=== PATIENT | female | born 1995 | race Caucasian/White ===

== ENCOUNTER 2020-04-07 09:31 | Emergency (ER) | payer OTHER, SELFPAY ==
--- OUTSIDE RECORDS SUMMARY | 2020-04-07 09:34 | XMS REPORT | Continuity of Care Document ---
:1995 Author Organization [facility] t Address [address] [place] [address] Dr. Mcgowan [address] [place] [id number] Care Team Providers Name Role Phone Unavailable Unavailable Unavailable Problems This patient has no known problems. Allergies, Adverse Reactions, Alerts This patient has no known allergies or adverse reactions. Medications This patient has no known medications. Procedures This patient has no known procedures. Results This patient has no known results.
[2020-04-07] MEDS ORDERED: NA CHLORIDE 0.9% 1,000 ML ONE (10:18)
[2020-04-07] MEDS ORDERED: PROMETHAZINE INJ 25 MG/ML AMP ONE (10:18)
[2020-04-07 10:32] LABS: Absolute Lymphocytes (CBC) 1.6 K/uL (0.7-4.9); Basophils % 0.9 % (0-1.3); Hematocrit 40.9 % (36.0-45.0); RBC Red Blood Cell Count 4.28 M/uL (3.86-4.86)
[2020-04-07 10:36] LABS: Urine Blood 3+ (NEG); Urine Glucose NEGATIVE (NEG); Urine Protein TRACE (NEG)
[2020-04-07 10:50] LABS: BUN Blood Urea Nitrogen 11 mg/dL (7-18); Bicarbonate 26 mmol/L (21-32); Glucose Level 97 mg/dL (74-106); Sodium Level 142 mmol/L (136-145)
[2020-04-07 10:54] LABS: Urine Bacteria <20 /HPF (<20)
[2020-04-07 10:55] LABS: Urine Amorphous Sediment 1+ /HPF (NONE SEEN)
[2020-04-07 11:01] LABS: HCG, Quantitative < 1 mIU/mL (1-3)
--- NOTE | 2020-04-07 11:13 | EDPHYS ---
Physician Documentation [facility] Name: Jaylin Caceres Age: 25 yrs Sex: Female : 1995 Arrival Date: 04/07/2020 Time: 09:35 Bed 15 Private MD: ED Physician Wade Armendariz HPI: 04/07 09:51 This 25 yrs old Female presents to ER via Ambulatory with complaints of pm1 Vaginal Bleeding, + Preg <12wks. 09:51 The patient presents to the emergency department with vaginal bleeding, has used two pm1 panty liners since onset this AM. Previous pregnancies: in previous pregnancies patient has had. Associated signs and symptoms: Pertinent positives: nausea, Pertinent negatives: chest pain, diarrhea, dysuria, fever, shortness of breath, vomiting. feels like prior miscarriage. Patient late on cycle about 1 week so she took a home test last night and it came back positive. This AM onset of vaginal bleeding. 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 - Social history:: Smoking status: Patient reports the use of cigarette tobacco products, smokes one-half pack cigarettes per day. ROS: 09:51 Constitutional: Negative for fever, chills, and weight loss, Cardiovascular: Negative pm1 for chest pain, palpitations, and edema, Respiratory: Negative for shortness of breath, cough, wheezing, and pleuritic chest pain. 09:51 Back: Negative for injury and pain. 09:51 MS/Extremity: Negative for injury and deformity, Skin: Negative for injury, rash, and discoloration, Neuro: Negative for headache, weakness, numbness, tingling, and seizure. 09:51 Abdomen/GI: Positive for nausea, abdominal cramps, Negative for vomiting, diarrhea. 09:51 : Positive for vaginal bleeding, Negative for urinary symptoms. Exam: 09:51 Constitutional: This is a well developed, well nourished patient who is awake, alert, pm1 and in no acute distress. Head/Face: Normocephalic, atraumatic. 09:51 Back: No spinal tenderness. No costovertebral tenderness. Full range of motion. Skin: Warm, dry with normal turgor. Normal color with no rashes, no lesions, and no evidence of cellulitis. MS/ Extremity: Pulses equal, no cyanosis. Neurovascular intact. Full, normal range of motion. 09:51 Cardiovascular: Exam negative for acute changes, Rate: normal, Rhythm: regular, Pulses: no pulse deficits are appreciated. 09:51 Respiratory: Exam negative for acute changes, respiratory distress, shortness of breath. 09:51 Abdomen/GI: Exam negative for acute changes, Inspection: abdomen appears normal, Bowel sounds: normal, Palpation: abdomen is soft and non-tender, in all quadrants. 09:51 Neuro: Exam negative for acute changes, Orientation: is normal, Mentation: is normal, Motor: is normal, moves all fours. Vital Signs: 09:51 BP 118 / 79; Pulse 94; Resp 18; Temp 98.2; Pulse Ox 99% on R/A; Weight 81.65 kg; Height ph 5 ft. 8 in. (172.72 cm); 10:47 BP 110 / 65; Pulse 64; Resp 18; Pulse Ox 100% on R/A; ph 11:40 BP 111 / 75; Pulse 148; Resp 18; Pulse Ox 100% on R/A; mh5 09:51 Body Mass Index 27.37 (81.65 kg, 172.72 cm) ph MDM: 09:43 Patient medically screened. pm1 11:12 Data reviewed: vital signs. Data interpreted: Pulse oximetry: on room air is 100 %. pm1 Interpretation: normal. Counseling: I had a detailed discussion with the patient and/or guardian regarding: the historical points, exam findings, and any diagnostic results supporting the discharge/admit diagnosis, lab results, the need for outpatient follow up, an OB/Gyne specialist, to return to the emergency department if symptoms worsen or persist or if there are any questions or concerns that arise at home. 04/07 09:51 Order name: Quantitative Hcg; Complete Time: 11:03 pm1 04/07 09:51 Order name: Abo/rh Typing; Complete Time: 11:12 pm1 04/07 09:51 Order name: Basic Metabolic Panel; Complete Time: 11:03 pm1 04/07 09:51 Order name: CBC with Diff; Complete Time: 10:53 pm1 04/07 09:51 Order name: Urine Microscopic Only; Complete Time: 11:03 pm1 04/07 10:32 Order name: Urine Dipstick--Ancillary (enter results); Complete Time: 10:53 em1 04/07 09:51 Order name: Urine Test (obtain specimen); Complete Time: 10:29 pm1 04/07 09:51 Order name: IV Saline Lock; Complete Time: 10:29 pm1 04/07 09:51 Order name: Labs collected and sent; Complete Time: 10:29 pm1 04/07 09:51 Order name: NPO; Complete Time: 10:29 pm1 04/07 10:32 Order name: Urine --Ancillary (enter results); Complete Time: 10:53 em1 04/07 09:51 Order name: Urine Dipstick-Ancillary (obtain specimen); Complete Time: 10:29 pm1 Administered Medications: 10:15 Drug: NS 0.9% 1000 ml Route: IV; Rate: 1000 ml; Site: right antecubital; ph 11:58 Follow up: Response: No adverse reaction; IV Status: Completed infusion ph 10:15 Drug: Phenergan 12.5 mg Route: IVP; Site: right antecubital; ph 11:58 Follow up: Response: No adverse reaction; Nausea is decreased ph Point of Care Testing: Urine : 10:30 hCG Reading: Negative; ph Disposition: 04/08 06:58 Co-signature as Attending Physician, Wade Armendariz MD I agree with the assessment and cora plan of care. Disposition: 04/07/20 11:13 Discharged to Home. Impression: Abnormal uterine and vaginal bleeding, unspecified. - Condition is Stable. - Discharge Instructions: Abnormal Uterine Bleeding. - Work release form, Family Work Release, Medication Reconciliation Form, Thank You Letter, Antibiotic Education, Prescription Opioid Use form. - Follow up: Emergency Department; When: As needed; Reason: Worsening of condition. Follow up: Private Physician; When: 2 - 3 days; Reason: Recheck today's complaints, Continuance of care, Re-evaluation by your physician. - Problem is new. - Symptoms have improved. Signatures: Dispatcher [employer] EDMS Wade Armendariz MD MD cha Hall, Patricia, RN RN ph Mk Rivera, COMPRESSED AIR PILE DRIVER OPERATOR COMPRESSED AIR PILE DRIVER OPERATOR pm1 Corrections: (The following items were deleted from the chart) 04/07 11:36 09:52 Transvaginal Ob+US.RAD.BRZ ordered. [facility] 11:59 11:13 04/07/2020 11:13 Discharged to Home. Impression: Abnormal uterine and vaginal ph bleeding, unspecified. Condition is Stable. Forms are Medication Reconciliation Form, Thank You Letter, Antibiotic Education, Prescription Opioid Use. Follow up: Emergency Department; When: As needed; Reason: Worsening of condition. Follow up: Private Physician; When: 2 - 3 days; Reason: Recheck today's complaints, Continuance of care, Re-evaluation by your physician. Problem is new. Symptoms have improved. pm1
--- NOTE | 2020-04-07 11:13 | ER ---
Nurse's Notes [facility] Name: Jaylin Caceres Age: 25 yrs Sex: Female : 1995 Arrival Date: 04/07/2020 Time: 09:35 Bed 15 Private MD: Diagnosis: Abnormal uterine and vaginal bleeding, unspecified Presentation: 04/07 09:51 Chief complaint: Patient states: Menstrual period approx 1 week late, took UPT last ph night and was positive, this morning upon waking had heavy vaginal bleeding and cramping, also reports nausea and difficulty urinating. Coronavirus screen: Client denies travel out of the [place] in the last 14 days. At this time, the client does not indicate any symptoms associated with coronavirus-19. Ebola Screen: No symptoms or risks identified at this time. Initial Sepsis Screen: Does the patient meet any 2 criteria? No. Patient's initial sepsis screen is negative. Does the patient have a suspected source of infection? No. Patient's initial sepsis screen is negative. Risk Assessment: Do you want to hurt yourself or someone else? Patient reports no desire to harm self or others. Onset of symptoms was April 07, 2020. 09:51 Method Of Arrival: Ambulatory ph 09:51 Acuity: LAWRENCE 3 ph Triage Assessment: 09:56 General: Appears in no apparent distress. comfortable, Behavior is cooperative, ph appropriate for age, anxious, Denies fever, feeling ill. Pain: Complains of pain in suprapubic area, right lower quadrant and left lower quadrant. Neuro: Level of Consciousness is awake, alert, obeys commands, Oriented to person, place, time, situation. Cardiovascular: Capillary refill < 3 seconds in bilateral fingers Patient's skin is warm and dry. Respiratory: Airway is patent Respiratory effort is even, unlabored, Respiratory pattern is regular, symmetrical. GI: Reports nausea, Patient currently denies vomiting. : Reports cramping, in bilateral lower quadrant(s) vaginal bleeding that is bright red, heavy flow. Derm: Skin is intact, is healthy with good turgor, Skin is pink, warm \T\ dry. Musculoskeletal: Circulation, motion, and sensation intact. Range of motion: intact in all extremities. 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 - Social history:: Smoking status: Patient reports the use of cigarette tobacco products, smokes one-half pack cigarettes per day. Screenin:55 Abuse screen: Denies threats or abuse. Denies injuries from another. Nutritional ph screening: No deficits noted. Tuberculosis screening: No symptoms or risk factors identified. Fall Risk None identified. Assessment: 09:57 General: SEE TRIAGE ASSESSMENT . ph 10:47 Reassessment: Patient appears in no apparent distress at this time. Patient and/or ph family updated on plan of care and expected duration. Pain level reassessed. Patient is alert, oriented x 3, equal unlabored respirations, skin warm/dry/pink. Vital Signs: 09:51 BP 118 / 79; Pulse 94; Resp 18; Temp 98.2; Pulse Ox 99% on R/A; Weight 81.65 kg; Height ph 5 ft. 8 in. (172.72 cm); 10:47 BP 110 / 65; Pulse 64; Resp 18; Pulse Ox 100% on R/A; ph 11:40 BP 111 / 75; Pulse 148; Resp 18; Pulse Ox 100% on R/A; mh5 09:51 Body Mass Index 27.37 (81.65 kg, 172.72 cm) ph ED Course: 09:35 Patient arrived in ED. ag5 09:43 Mk Rivera NP is PHCP. pm1 09:43 Wade Armendariz MD is Attending Physician. pm1 09:51 Fouzia Hinds, RN is Primary Nurse. ph 09:54 Triage completed. ph 09:55 Patient has correct armband on for positive identification. Bed in low position. Call ph light in reach. Side rails up X 1. Pulse ox on. NIBP on. Door closed. Noise minimized. 10:15 Initial lab(s) drawn, by me, sent to lab. Urine collected: clean catch specimen, blood ph tinged. Inserted saline lock: 20 gauge in right antecubital area, using aseptic technique. Blood collected. 10:30 Arm band placed on Patient placed in an exam room, on a stretcher. ph 11:58 No provider procedures requiring assistance completed. IV discontinued, intact, ph bleeding controlled, No redness/swelling at site. Pressure dressing applied. Administered Medications: 10:15 Drug: NS 0.9% 1000 ml Route: IV; Rate: 1000 ml; Site: right antecubital; ph 11:58 Follow up: Response: No adverse reaction; IV Status: Completed infusion ph 10:15 Drug: Phenergan 12.5 mg Route: IVP; Site: right antecubital; ph 11:58 Follow up: Response: No adverse reaction; Nausea is decreased ph Point of Care Testing: Urine : 10:30 hCG Reading: Negative; ph Outcome: 11:13 Discharge ordered by . pm1 11:59 Discharged to home ambulatory, with significant other. ph 11:59 Condition: good 11:59 Discharge instructions given to patient, Instructed on discharge instructions, follow up and referral plans. Demonstrated understanding of instructions, follow-up care. 11:59 Patient left the ED. ph Signatures: Fouzia Hinds RN RN ph Mk Rivera, JARON HAIR SALON MANAGER 1 Ginger Farrell 5 Floresita Barnard 5
== END 2020-04-07 11:59 | disposition home or self-care (01) ==
LOC: ER 09:31
DX: N93.9 Abnormal uterine and vaginal bleeding, unspecified (principal); F17.210 Nicotine dependence, cigarettes, uncomplicated; Z91.040 Latex allergy status; Z91.048 Other nonmedicinal substance allergy status
CPT/HCPCS: 36415; 80048; 81003; 81015; 81025; 84702; 85025; 86900; 86901; 96361; 96374; 99284; J2550; J7030